=== PATIENT | male | born 1995 | race African-American/Black ===

== ENCOUNTER 2023-11-28 17:16 | Emergency (ER) | payer OTHER, SELFPAY ==
[2023-11-28 17:33] VITALS: BP 133/83; BP 165/110; PULSE 105; PULSE 95; RESP 16; TEMP 36.4; O2SAT 96; O2SAT 98; BMI 37.1
[2023-11-28 17:49] VITALS: RESP 14
--- NOTE | 2023-11-28 17:50 | PC.NURSE ---
LADONNA is coming to the ED today reporting suicidal thoughts with a plan to drink himself to . He reports the last year has been stress after stress and he has been having suicidal thoughts for quite a few months. He reports that he lives at home with his girlfriend and kids. He denies any HI/AH/VH at this time. Pt aware of plan of care for med clearance then CARE team susana
--- NOTE | 2023-11-28 17:55 | ED_ITS ---
HPI - Psych General Chief Complaint: Psychiatric Symptoms Stated Complaint: Crisis, SI, ETOH Time Seen by Provider: 11/28/23 17:19 Source: patient and EMS Mode of arrival: EMS Limitations: no limitations History of Present Illness ED Provider: Leatha Delgado PA-C HPI Narrative: 28-year-old male with a history of alcohol abuse and untreated depression presents to the ER for evaluation of worsening depression and suicidal thoughts. Patient reports that this has been going on for months to years since his injury in the [employer] in 2018. He states he has been suffering from chronic pain since his time in the . He was medically discharged in June. He states he suffers from chronic hip pain, knee pain, wrist pain, unrelieved with cortisone injections. He is sick of living with pain. He reports significant increase in his life stressors and he has been using alcohol to cope. He lives at home with his girlfriend and 3 children. She called 911 today because she was afraid for him. He told her that he wanted to go to sleep and never wake up. Patient admits to drinking 5 Buzzball shots and having edibles today. Denies any heavier drug use. 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 He states his depression has been related to his physical complaints in the [employer]. He has not been on medications for depression. He does not have a therapist or psychiatrist. He denies any inpatient psychiatric hospitalizations. MD complaint: suicidal ideation and feels depressed Onset (ago): month(s) Duration: getting worse History of same: Yes Relieving factors: none Exacerbating factors: alcohol Context: recent alcohol abuse Associated psychiatric symptoms: depression and suicidal ideation Associated symptoms: other (Has not been eating solid foods the last few days due to worsening depression) If self harm: admits thoughts of self harm Related Data Home Medications ?Medication ?Instructions ?Recorded ?Confirmed No Known Home Meds 11/28/23 11/28/23 Allergies Allergy/AdvReac Type Severity Reaction Status Date / Time No Known Allergies Allergy Verified 11/28/23 17:50 Review of Systems 2 Review of Systems: Yes all other systems are reviewed and are negative PMFSH Social History Social History Smoked in Last 30 Days: No Use of substances other than those prescribed or required for medical reasons: No Advance Directives: No Advance Directives Information Provided: No Do you have a plan to hurt others: No Plan Physical Exam 2 Vital Signs: Vital Signs: Last Vital Signs Temp 98.4 F 11/28/23 22:19 Pulse 74 11/28/23 22:19 Resp 16 11/28/23 22:19 BP 126/67 11/28/23 22:19 Pulse Ox 98 11/28/23 22:19 O2 Del Method Room Air 11/28/23 22:19 BMI result Body Mass Index 37.1 Appearance: Alert. Oriented X3. No acute distress. Pleasant and cooperative Head: normocephalic, atraumatic. Eyes: Pupils equal, round and reactive to light. ENT: Pharynx normal. No tonsillar swelling or exudate. Neck: Normal inspection. Neck supple. CVS: Normal heart rate and rhythm. Pulses normal. Respiratory: No respiratory distress. Breath sounds normal. Abdomen: Soft and nontender. +BS x4 Skin: Skin warm and dry. Normal skin color. Normal skin turgor. No rashes. Extremities: No lower extremity edema. No joint swelling. Neuro/psych: Oriented X 3. No motor deficit. No sensory deficit. CN II-XII intact. Normal speech and cognition. Mood is depressed Course Reevaluation(s) Reevaluation #1: Physician observation started at 18:45. Patient placed in physician observation because patient is awaiting CARE team evaluation for the possible need of inpatient psych admission. At the time observation was started patient's vital signs were stable. Patient is alert and oriented. Neuro exam is non-focal. CV: RRR and lungs are clear. Will continue to monitor. Time: 18:45 Reevaluation #2: Patient seen by care team. He was determined to not have any further suicidal ideation after he was sober. Patient determined to be safe for discharge. He was discharged at 22:19. Discharged home with family. Safety plan in place. Comfortable discharge home. Physician observation discontinued at 22:19 Medical Decision Making Medical Decision Making MDM Narrative: 28-year-old [employer] with history of alcohol use presents to the ER for evaluation of worsening depression and suicidal ideation. He states about a year ago he almost harm himself and tried to end his life but his restarted at the time was able to have a conversation with him and stop him. He denies any specific plan. He states he just wants to go to sleep and never wake up. He arrives to the ER intoxicated, pleasant and cooperative. He wants to get help. Once he is medically cleared he will need to get evaluated by the care team -I discussed the patient with the Behavioral Health/care team. Patient is now sober, no longer suicidal. Patient states that this is the reality checked that he needed to become sober. Patient has a girlfriend and 3 kids at home. Patient has also his mother a brother in an aunt flying from [place] tomorrow to help him get into a detox program on an outpatient basis. Patient states that tonight he will not drink any alcohol, once to get through tomorrow to get into a detox program. The care team spoke with the patient's girlfriend, she is agreeable to have him return home. Patient has no history of SI or HI in the past, does have history of ETOH abuse. However, per the care team, patient is very motivated to go to go to detox tomorrow. Patient adamant that he is not SI or HI and the he will not harmed himself or others Differential Diagnosis Differential Diagnoses: The differential diagnosis associated with the presentation includes substance induced mood disorder, acute psychosis, schizophrenia, schizoaffective disorder, PTSD, bipolar disorder, major depression with psychotic features Admission/Observation Consideration of admission/observation: Escalation of care including admission/observation considered Lab Data 11/28/23 18:09 11/28/23 18:09 Labs: Lab Results 11/28/23 Range/Units 18:09 WBC 7.2 (4.8-10.8) X10*3/uL RBC 4.77 (4.60-5.80) X10*6/uL Hgb 14.7 (14.0-18.0) g/dl Hct 43.0 (42.0-52.0) % MCV 90.1 (80.0-98.0) fL MCH 30.8 (27.0-33.0) pg MCHC 34.2 (31.0-36.0) g/dl RDW 11.5 (11.0-16.0) % Plt Count 305 (160-400) X10*3/uL MPV 10.3 (9.4-12.4) fL Immature Gran % (Auto) 0.3 (0.0-0.4) % Neut % (Auto) 75.9 H (45-73) % Lymph % (Auto) 17.2 L (20-40) % [place] % (Auto) 6.1 (2-11) % Eos % (Auto) 0.4 (0-4) % Baso % (Auto) 0.1 (0-2) % Lymph # (Auto) 1.2 (1.2-4.9) X10*3/uL [place] # (Auto) 0.4 (0.1-1.2) X10*3/uL Eos # (Auto) 0.0 (0.0-0.4) X10*3/uL Baso # (Auto) 0.0 (0.0-0.2) X10*3/uL Abs Immat Gran (auto) 0.02 (0.00-0.03) X10*3/uL Absolute Neuts (auto) 5.4 (2.0-8.3) x10*3/uL Absolute Nucleated RBC 0.000 (0.0-0.012) X10*3/uL Nucleated RBC % (auto) 0.0 (0.0-0.2) /100WBC Sodium 140 (135-145) mmol/L Potassium 3.6 (3.3-5.1) mmol/L Chloride 106 (96-108) mmol/L Carbon Dioxide 23 (22-29) mmol/L Anion Gap 15 (12-20) BUN 7 L (9-16) mg/dL Creatinine 0.98 (0.5-1.4) mg/dL Estim Creat Clear Calc 124.7 Estimated GFR > 60 Random Glucose 115 (60-115) mg/dL Calcium 9.6 (8.4-10.2) mg/dL Magnesium 2.2 (1.6-2.6) mg/dL Total Bilirubin 0.5 (0.0-1.0) mg/dL Direct Bilirubin 0.2 (0.0-0.5) mg/dL AST 27 (5-37) U/L ALT 32 (0-40) U/L Alkaline Phosphatase 60 (39-117) U/L Total Protein 8.5 H (6.5-8.0) g/dL Albumin 4.8 (3.5-5.0) g/dL Urine Color Yellow Urine Appearance Clear Urine pH 5.5 (5.0-9.0) Ur Specific [place] 1.010 (1.005-1.025) Urine Protein Trace (Neg-Trace) mg/dL Urine Glucose (UA) Negative (Negative) mg/dL Urine Ketones Negative (Negative) mg/dL Urine Blood Negative (Negative) Urine Nitrite Negative (Negative) Ur Leukocyte Esterase Trace H (Negative) Urine RBC 0-2 (0-2) /HPF Urine WBC 6-10 H (0-5) /HPF Ur Squamous Epith Cells 3-5 (0-2) /HPF Urine Bacteria None Seen (None Seen) Hyaline Casts 3-5 (0-2) /LPF Urine Opiates Screen Not Detected (Not Detect) Ur Buprenorphine Scrn Not Detected (Not Detect) ng/mL Ur Oxycodone Screen Not Detected (Not Detect) ng/mL Urine Methadone Screen Not Detected (Not Detect) ng/mL Urine Fentanyl Screen Not Detected (Not Detect) Ur Barbiturates Screen Not Detected (Not Detect) Ur Phencyclidine Scrn Not Detected (Not Detect) Ur Amphetamines Screen Not Detected (Not Detect) U Benzodiazepines Scrn Not Detected (Not Detect) Urine Cocaine Screen Not Detected (Not Detect) U Marijuana (THC) Screen POSITIVE H (Not Detect) Ethyl Alcohol 145 mg/dL Discharge Plan Discharge Clinical Impression: Alcohol abuse Patient Disposition: Home, Self-Care Instructions: Abuse of Alcohol (ED) Additional Instructions: Please follow-up with your primary care physician tomorrow. If you have any worsening or new symptoms, please return to the emergency room or call 911 Prescriptions: No Action No Known Home Meds Interventions: [place]-Suicide Risk Severity Scale Last Done: 11/28/23 17:48 ED Discharge Assessment Last Done: 11/28/23 22:19 Discharge Date/Time: 11/28/23 22:22 Print Language: B[place]
[2023-11-28 18:15] LABS: MANUAL DIFF FLAG NO
[2023-11-28 18:17] LABS: Appearance Urine Clear; Color Urine Yellow; Glucose Urine UA Negative (Negative); Leukocyte Esterase Urine Trace (Negative); Nitrite Urine Negative (Negative); PH 5.5 (5.0-9.0); UMIC TRIGGER UACC YES; Urine Blood Negative (Negative); Urine Ketones Negative (Negative); Urine Protein Trace mg/dL (Neg-Trace)
[2023-11-28 18:18] LABS: Basophils Percent Auto 0.1 % (0-2); Eosinophils Percent Auto 0.4 % (0-4); Hemoglobin 14.7 g/dl (14.0-18.0); Imm Gran Abs Auto 0.02 X10*3/uL (0.00-0.03); Imm Gran Pct Auto 0.3 % (0.0-0.4); Lymphocytes Absolute Auto 1.2 X10*3/uL (1.2-4.9); Lymphocytes Percent Auto 17.2 % (20-40); Mean Corpuscular HGB Conc 34.2 g/dl (31.0-36.0); Mean Corpuscular Hemoglobin 30.8 pg (27.0-33.0); Mean Corpuscular Volume 90.1 fL (80.0-98.0); Mean Platelet Volume 10.3 fL (9.4-12.4); Monocytes Absolute Auto 0.4 X10*3/uL (0.1-1.2); Monocytes Percent Auto 6.1 % (2-11); Neutrophils Absolute Auto 5.4 x10*3/uL (2.0-8.3); Neutrophils Percent Auto 75.9 % (45-73); Platelet Count 305 X10*3/uL (160-400); Red Blood Count 4.77 X10*6/uL (4.60-5.80); Red Cell Distribution Width 11.5 % (11.0-16.0); White Blood Count 7.2 X10*3/uL (4.8-10.8)
[2023-11-28 18:22] LABS: Bacteria Urine None Seen (None Seen); RBC Urine 0-2 /HPF (0-2); UACC Culture Trigger YES
[2023-11-28 18:36] LABS: Amphetamine Screen Urine Not Detected (Not Detect); Barbiturates, Urine Not Detected (Not Detect); Benzodiazepines Screen Urine Not Detected (Not Detect); Buprenorphine Scr Not Detected (Not Detect); Cannabinoid Screen Urine POSITIVE (Not Detect); Cocaine Screen Urine Not Detected (Not Detect); Fentanyl, urine Not Detected (Not Detect); Methadone Screen, Urine Not Detected (Not Detect); Opiate Screen Urine Not Detected (Not Detect); Oxycodone Screen Urine Not Detected (Not Detect); Phencyclidine Screen Urine Not Detected (Not Detect)
[2023-11-28 18:38] LABS: Alanine Aminotransferase 32 U/L (0-40); Albumin Level 4.8 g/dL (3.5-5.0); Alkaline Phosphatase 60 U/L (39-117); Anion Gap 15 (12-20); Aspartate Amino Transferase 27 U/L (5-37); Bilirubin Direct 0.2 mg/dL (0.0-0.5); Bilirubin Total 0.5 mg/dL (0.0-1.0); Blood Urea Nitrogen 7 mg/dL (9-16); Calcium 9.6 mg/dL (8.4-10.2); Carbon Dioxide 23 mmol/L (22-29); Chloride 106 mmol/L (96-108); Creatinine Clr Calc Pharmacy 124.7; Estimated Glomerular Filt Rate > 60; Ethanol 145 mg/dL; Glucose Random 115 mg/dL (60-115); Magnesium 2.2 mg/dL (1.6-2.6); Potassium 3.6 mmol/L (3.3-5.1); Sodium 140 mmol/L (135-145); Total Protein 8.5 g/dL (6.5-8.0)
--- NOTE | 2023-11-28 19:15 | PC.NURSE ---
patient appears to remain at rest presently respirations are even and ulabored patient appears in no distress.
[2023-11-28 22:19] VITALS: BP 126/67; PULSE 74; RESP 16; TEMP 36.9; O2SAT 98
== END 2023-11-28 22:22 | disposition home or self-care (01) ==
PROVIDERS: Physician Assistant; Emergency Provider Emergency Medicine Emergency Medical Services
DX: F10.10 Alcohol abuse, uncomplicated (principal); R45.851 Suicidal ideations; F33.1 Major depressive disorder, recurrent, moderate; F43.9 Reaction to severe stress, unspecified; Y90.6 Blood alcohol level of 120-199 mg/100 ml; Z51.81 Encounter for therapeutic drug level monitoring; Z79.899 Other long term (current) drug therapy
CPT/HCPCS: 36415; 80048; 80076; 80307; 81001; 83735; 85025; 87086; 99285; S9485